=== PATIENT | female | born 1985 | race Two or more races ===

== ENCOUNTER → 2025-02-19 | Emergency (ER) | payer OTHER ==
[~2025-02-19] VITALS: Ht 165.1 cm; Wt 83.9 kg
[~2025-02-19] MED LIST: CARAFATE1 GM PO; FAMOTIDINE/PF 20 MG/2 ML VIAL IV PUSH STA; FAMOTIDINE/PF 20 MG/2 ML VIAL ONE; METOCLOPRAMIDE HCL 5 MG/ML VIAL IV STA; METOCLOPRAMIDE HCL 5 MG/ML VIAL ONE; PEPCID40 MG PO; PROTONIX40 MG PO; SUCRALFATE 1 G TABLET PO STA
== END | disposition home or self-care (01) ==
LOC: ER 00:47
DX: K21.9 Gastro-esophageal reflux disease without esophagitis (principal); F41.9 Anxiety disorder, unspecified